=== PATIENT | female | born 1970 | race Caucasian/White ===

== ENCOUNTER 2016-09-24 13:09 | Emergency (ER) | payer BC ==
[2016-09-24 13:13] VITALS: BP 134/76; PULSE 77; TEMP 98.4; BMI 19.4
--- NOTE | 2016-09-24 14:18 | PDOC ---
History of Present Illness - General Chief Complaint: Allergic Reaction Stated Complaint: ALLERGIC RXN Time Seen by Provider: 09/24/16 13:49 History Source: Patient Exam Limitations: No Limitations - History of Present Illness Initial Comments: CHIEF COMPLAINT: 46 y/o afebrile female with PMH asthma, sinus infections and multiple allergies to medications c/o itching all over. HISTORY OF PRESENT ILLNESS: The patient states she's had 2 days of green nasal discharge and sinus pressure. Last night she decided to take an Advil cold and sinus (she has never taken before) and this morning woke up with overall body itching. She denies visible rash, f/c, n/v/d, CP, SOB, facial/tongue swelling, abd pain, back pain. She did not take benadryl because she states it causes her face to swell. PCP is Dr. Mark Oliva. Vital signs on arrival are within normal limits. REVIEW OF SYSTEMS: GENERAL/CONSTITUTIONAL: No fever/chills. No weakness. No weight change. HEAD, EYES, EARS, NOSE AND THROAT: No change in vision. No ear pain or discharge. No sore throat. +runny nose. +sinus pressure CARDIOVASCULAR: No chest pain or shortness of breath. RESPIRATORY: No cough, wheezing, or hemoptysis. GASTROINTESTINAL: No abd pain, nausea, vomiting, diarrhea. GENITOURINARY: No dysuria, frequency, or change in urination. MUSCULOSKELETAL: No joint or muscle swelling or pain. No neck or back pain. SKIN: +overall body itching NEUROLOGIC: No headache, vertigo, loss of consciousness, or loss of sensation. PHYSICAL EXAM: GENERAL: The patient is awake, alert, and fully oriented, in no acute distress. She is well appearing and ambulatory. HEAD: Normal with no signs of trauma. TTP of frontal and maxillary sinuses ENT: Pupils equal, round and reactive to light, extraocular movements intact, sclera anicteric, conjunctiva clear. Neck supple. No nasal discharge in nares. No tongue or facial swelling. LUNGS: Clear to auscultation bilaterally. Normal excursion. No respiratory distress or use of accessory muscles. No wheezing, rhonchi, crackles, rales. CV: RRR, S1/S2, no MRG. Cap refill < 2 sec. ABDOMEN: Soft, non-distended, non-tender even to deep palpation, no hepatomegaly or splenomegaly, no masses. EXTREMITIES: Normal range of motion, no edema. NEUROLOGICAL: Normal speech, normal gait. CN II-XII grossly intact. PSYCH: Normal mood, normal affect. SKIN: Warm, dry, normal turgor, no rashes or lesions noted. Past History - Past Medical History Allergies/Adverse Reactions: Allergies Allergy/AdvReac Type Severity Reaction Status Date / Time tinidazole [From Tindamax] Allergy Mild Hives Verified 06/03/16 18:10 chlorpheniramine maleate Allergy Verified 09/24/16 13:14 [From Advil Allergy Sinus] ciprofloxacin HCl Allergy Verified 06/03/16 18:10 [From Cipro] clarithromycin [From Biaxin] Allergy Verified 06/03/16 18:10 ibuprofen Allergy Verified 09/24/16 13:14 [From Advil Allergy Sinus] levofloxacin [From Levaquin] Allergy Verified 06/03/16 18:10 pseudoephedrine HCl Allergy Verified 09/24/16 13:14 [From Advil Allergy Sinus] sulfamethoxazole Allergy Verified 06/03/16 18:10 [From Bactrim] trimethoprim [From Bactrim] Allergy Verified 06/03/16 18:10 diphenhydramine HCl AdvReac Verified 06/03/16 18:10 [From Benadryl] Home Medications: Ambulatory Orders Amoxicillin/Potassium Clav [Augmentin 875-125 Tablet] 1 each PO BID #14 tablet 09/24/16 Asthma: Yes - Surgical History Abdominal Surgery: No - Immunization History Immunization Up to Date: No - Psycho/Social/Smoking Cessation Hx Anxiety: No Suicidal Ideation: No Smoking Status: Yes Smoking History: Current every day smoker Have you smoked in the past 12 months: Yes Number of Cigarettes Smoked Daily: 1 Information on smoking cessation initiated: No 'Breaking Loose' booklet given: 04/14/16 Hx Alcohol Use: No Drug/Substance Use Hx: No Substance Use Type: None *Physical Exam - Vital Signs Last Vital Signs Temp Pulse Resp BP Pulse Ox 98.4 F 77 18 134/76 99 09/24/16 13:10 09/24/16 13:10 09/24/16 13:10 09/24/16 13:10 09/24/16 13:10 Medical Decision Making - Medical Decision Making A/P: 46 y/o female with overall body itching possibly secondary to advil cold and sinus taken last night. Plan is as follows: 1. IM decadron Will send rx for augmentin to her her pharmacy for sinusitis. Instructed her to f/u with dr. oliva on wednesday and return to the ER with any worsening or concerning symptoms. The patient verbalizes understanding of all instructions, has no further questions and is awaiting discharge. *DC/Admit/Observation/Transfer Diagnosis at time of Disposition: Allergic reaction caused by a drug Qualifiers: Encounter type: subsequent encounter Qualified Code(s): T78.40XD - Allergy, unspecified, subsequent encounter Acute maxillary sinusitis Qualifiers: Recurrence: recurrent Qualified Code(s): J01.01 - Acute recurrent maxillary sinusitis - Discharge Dispostion Disposition: HOME Condition at time of disposition: Good - Prescriptions Prescriptions: Amoxicillin/Potassium Clav [Augmentin 875-125 Tablet] 1 each PO BID #14 tablet - Referrals Referrals: Mark Oliva MD [Primary Care Provider] - Call tomorrow - Patient Instructions Printed Discharge Instructions: DI for Adverse Drug Reaction -- Allergic, DI for Sinusitis Additional Instructions: Discharge Instructions: -You were given Decadron for your itching symptoms; its effects will last 48 hours -A prescription for augmentin was called to your pharmacy; take as directed -Follow up with your doctor on Wednesday -Return to the ER with any worsening or concerning symptoms.
[2016-09-24] MEDS ORDERED: DEXAMETHASONE SOD PHOSPHATE 10 MG/1 ML VIAL ONE (14:20)
[2016-09-24] MEDS: DEXAMETHASONE SOD PHOSPHATE 10 MG/1 ML VIAL IM ONE (14:23)
== END 2016-09-24 14:32 | disposition home or self-care (01) ==
LOC: JERFT 13:09
PROC: 3E0233Z Introduction of Anti-inflammatory into Muscle, Percutaneous Approach (ICD-10-PCS; principal; 2016-09-24)
DX: L29.8 Other pruritus (principal); T39.315A Adverse effect of propionic acid derivatives, initial encounter; J01.01 Acute recurrent maxillary sinusitis
CPT/HCPCS: 99281-25

== ENCOUNTER 2016-12-05 19:32 | Emergency (ER) | payer BC ==
[2016-12-05 19:38] VITALS: BP 128/82; PULSE 85; TEMP 98; BMI 19.4
--- NOTE | 2016-12-05 20:05 | PDOC ---
History of Present Illness - General Chief Complaint: Cold Symptoms Stated Complaint: COLD SYMPTOMS Time Seen by Provider: 12/05/16 19:59 History Source: Patient Exam Limitations: No Limitations - History of Present Illness Initial Comments: CHIEF COMPLAINT: 46 y/o afebrile female c/o sinus infection x 3 days. HISTORY OF PRESENT ILLNESS: The patient states she has sinus pressure, nasal congestion and pressure behind her eyes x 3 days. She states she gets recurrent sinus infections but doesn't take OTC allergy meds because they don't work and because she's allergic to everything. She denies f/c, n/v/d, earache, sore throat, CP, SOB, LONG, and all other symptoms. Vital signs on arrival are within normal limits. REVIEW OF SYSTEMS: GENERAL/CONSTITUTIONAL: No fever/chills. No weakness. No weight change. HEAD, EYES, EARS, NOSE AND THROAT: No change in vision. No ear pain or discharge. No sore throat. +sinus pressure and nasal congestion. +pressure behind eyes. CARDIOVASCULAR: No chest pain or shortness of breath. RESPIRATORY: No cough, wheezing, or hemoptysis. GASTROINTESTINAL: No abd pain, nausea, vomiting, diarrhea. GENITOURINARY: No dysuria, frequency, or change in urination. MUSCULOSKELETAL: No joint or muscle swelling or pain. No neck or back pain. SKIN: No rash or easy bruising. NEUROLOGIC: No headache, vertigo, loss of consciousness, or loss of sensation. PHYSICAL EXAM: GENERAL: The patient is awake, alert, and fully oriented, in no acute distress. SHe is ambulatory and well appearing. HEAD: Pain elicited with palpation of frontal and maxillary sinuses. ENT: Pupils equal, round and reactive to light, extraocular movements intact, sclera anicteric, conjunctiva clear. Neck supple. LUNGS: Clear to auscultation bilaterally. Normal excursion. No respiratory distress or use of accessory muscles. CV: RRR, S1/S2, no MRG. Cap refill < 2 sec. ABDOMEN: Soft, non-distended, non-tender even to deep palpation, no hepatomegaly or splenomegaly, no masses. EXTREMITIES: Normal range of motion, no edema. NEUROLOGICAL: Normal speech, normal gait. CN II-XII grossly intact. PSYCH: Normal mood, normal affect. SKIN: Warm, dry, normal turgor, no rashes or lesions noted. Past History - Past Medical History Allergies/Adverse Reactions: Allergies Allergy/AdvReac Type Severity Reaction Status Date / Time tinidazole [From Tindamax] Allergy Mild Hives Verified 12/05/16 19:34 chlorpheniramine maleate Allergy Verified 12/05/16 19:34 [From Advil Allergy Sinus] ciprofloxacin HCl Allergy Verified 12/05/16 19:34 [From Cipro] clarithromycin [From Biaxin] Allergy Verified 12/05/16 19:34 ibuprofen Allergy Verified 12/05/16 19:34 [From Advil Allergy Sinus] levofloxacin [From Levaquin] Allergy Verified 12/05/16 19:34 pseudoephedrine HCl Allergy Verified 12/05/16 19:34 [From Advil Allergy Sinus] sulfamethoxazole Allergy Verified 12/05/16 19:34 [From Bactrim] trimethoprim [From Bactrim] Allergy Verified 12/05/16 19:34 diphenhydramine HCl AdvReac Verified 12/05/16 19:34 [From Benadryl] Home Medications: Ambulatory Orders Amoxicillin - [Amoxicillin 500mg Capsule -] 500 mg PO TID #21 capsule 12/05/16 Asthma: Yes - Surgical History Abdominal Surgery: No - Immunization History Immunization Up to Date: No - Psycho/Social/Smoking Cessation Hx Anxiety: No Suicidal Ideation: No Smoking Status: Yes Smoking History: Current every day smoker Have you smoked in the past 12 months: Yes Number of Cigarettes Smoked Daily: 2 Information on smoking cessation initiated: Yes 'Breaking Loose' booklet given: 12/05/16 Hx Alcohol Use: No Drug/Substance Use Hx: No Substance Use Type: None *Physical Exam - Vital Signs Last Vital Signs Temp Pulse Resp BP Pulse Ox 98.0 F 85 18 128/82 100 12/05/16 19:35 12/05/16 19:35 12/05/16 19:35 12/05/16 19:35 12/05/16 19:35 Medical Decision Making - Medical Decision Making A/P: 46 y/o female with sinusitis. She states amoxicillin is the only thing that works for her and she is not allergic to. Will send rx for amox. Suggested she call her doctor on Wednesday to schedule follow up appointment and return to the ER with any worsening or concerning symptoms. The patient verbalizes understanding of all instructions, has no further questions and is awaiting discharge. *DC/Admit/Observation/Transfer Diagnosis at time of Disposition: Acute maxillary sinusitis Qualifiers: Recurrence: recurrent Qualified Code(s): J01.01 - Acute recurrent maxillary sinusitis - Discharge Dispostion Disposition: HOME Condition at time of disposition: Good - Prescriptions Prescriptions: Amoxicillin - [Amoxicillin 500mg Capsule -] 500 mg PO TID #21 capsule - Referrals Referrals: Mark Dsouza MD [Primary Care Provider] - (Call Wednesday) - Patient Instructions Printed Discharge Instructions: DI for Sinusitis Additional Instructions: Discharge Instructions: -Take Amoxicillin as prescribed -Call your doctor on Wednesday to schedule follow up appointment -Return to the ER with any worsening or concerning symptoms
== END 2016-12-05 20:10 | disposition home or self-care (01) ==
LOC: JERFT 19:32
DX: J01.01 Acute recurrent maxillary sinusitis (principal)
CPT/HCPCS: 99281-25

== ENCOUNTER 2016-12-19 14:52 | Emergency (ER) | payer BC ==
[2016-12-19 14:59] VITALS: BP 109/65; PULSE 86; TEMP 97.8; BMI 19.4
[2016-12-19] MEDS ORDERED: ACETAMINOPHEN 325 MG TABLET (FP) PO ONE (15:14)
[2016-12-19] MEDS ORDERED: DIPHTH,PERTUSS(ACELL),TET 0.5 ML DISP.SYRIN IM ONE (15:14)
[2016-12-19] MEDS ORDERED: ACETAMINOPHEN 325 MG TABLET (FP) ONE (15:24)
[2016-12-19] MEDS ORDERED: IBUPROFEN 600 MG TABLET (FP) PO ONE ×2 (15:29→15:33)
[2016-12-19] MEDS ORDERED: BACITRACIN 15 GM TUBE TOPICAL OINTMENT TP ONE (15:42)
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
== END 2016-12-19 16:04 | disposition home or self-care (01) ==
LOC: JERFT 14:52
PROC: 3E0234Z Introduction of Serum, Toxoid and Vaccine into Muscle, Percutaneous Approach (ICD-10-PCS; principal; 2016-12-19)
DX: S57.81XA Crushing injury of right forearm, initial encounter (principal); S60.811A Abrasion of right wrist, initial encounter; W23.0XXA Caught, crushed, jammed, or pinched between moving objects, initial encounter; Y93.89 Activity, other specified; Y92.038 Other place in apartment as the place of occurrence of the external cause
CPT/HCPCS: 73110-TC-RT; 73130-TC-RT; 90715; 99282-25

== ENCOUNTER 2017-03-30 18:53 | Emergency (ER) | payer BC ==
[2017-03-30 18:57] VITALS: BP 131/83; PULSE 90; TEMP 98.2; BMI 19.4
[2017-03-30] MEDS ORDERED: IBUPROFEN 400 MG TABLET (FP) PO ONE ×2 (20:28→20:33)
--- NOTE | 2017-03-30 20:34 | PDOC ---
History of Present Illness - General Chief Complaint: Pain, Acute Stated Complaint: FALL/INJURY Time Seen by Provider: 03/30/17 19:26 History Source: Patient - History of Present Illness Severity: moderate Past History - Past Medical History Allergies/Adverse Reactions: Allergies Allergy/AdvReac Type Severity Reaction Status Date / Time tinidazole [From Tindamax] Allergy Mild Hives Verified 03/30/17 18:55 chlorpheniramine maleate Allergy Verified 03/30/17 18:55 [From Advil Allergy Sinus] ciprofloxacin HCl Allergy Verified 03/30/17 18:55 [From Cipro] clarithromycin [From Biaxin] Allergy Verified 03/30/17 18:55 levofloxacin [From Levaquin] Allergy Verified 03/30/17 18:55 pseudoephedrine HCl Allergy Verified 03/30/17 18:55 [From Advil Allergy Sinus] sulfamethoxazole Allergy Verified 03/30/17 18:55 [From Bactrim] trimethoprim [From Bactrim] Allergy Verified 03/30/17 18:55 diphenhydramine HCl AdvReac Verified 03/30/17 18:55 [From Benadryl] Home Medications: Ambulatory Orders Ibuprofen [Motrin -] 800 mg PO Q6H #30 tablet 03/30/17 Asthma: Yes - Surgical History Abdominal Surgery: Yes - Immunization History Immunization Up to Date: No - Suicide/Smoking/Psychosocial Hx Smoking Status: Yes Smoking History: Current every day smoker Have you smoked in the past 12 months: Yes Number of Cigarettes Smoked Daily: 2 Information on smoking cessation initiated: No 'Breaking Loose' booklet given: 12/05/16 Hx Alcohol Use: No Drug/Substance Use Hx: No Substance Use Type: None Review of Systems - Review of Systems Musculoskeletal: Yes: Joint Pain. No: Joint Swelling *Physical Exam - Vital Signs Last Vital Signs Temp Pulse Resp BP Pulse Ox 98.2 F 90 18 131/83 100 03/30/17 18:55 03/30/17 18:55 03/30/17 18:55 03/30/17 18:55 03/30/17 18:55 - Physical Exam General Appearance: Yes: Appropriately Dressed. No: Apparent Distress HEENT: positive: Normal Voice Neck: positive: Supple Respiratory/Chest: negative: Respiratory Distress Gastrointestinal/Abdominal: positive: Soft Musculoskeletal: positive: Other (minimal ttp to R groin) Extremity: positive: Normal Inspection Integumentary: positive: Dry, Warm Neurologic: positive: Fully Oriented, Alert, Normal Mood/Affect Medical Decision Making - Medical Decision Making 03/30/17 20:34 46-year-old female, no significant history here with right groin strain status post fall. Patient states she lost her balance while descending steps today and "twisted" her groin See exam Groin strain dc w/ meds *DC/Admit/Observation/Transfer Diagnosis at time of Disposition: Groin strain Qualifiers: Encounter type: initial encounter Laterality: right Qualified Code(s): S76.211A - Strain of adductor muscle, fascia and tendon of right thigh, initial encounter; S76.211A - Strain of adductor muscle, fascia and tendon of right thigh, initial encounter - Discharge Dispostion Disposition: HOME Condition at time of disposition: Good - Prescriptions Prescriptions: Ibuprofen [Motrin -] 800 mg PO Q6H #30 tablet - Patient Instructions Printed Discharge Instructions: Groin Strain Additional Instructions: You most likely pulled a muscle in your groin. Take Motrin as needed until pain resolves
== END 2017-03-30 20:37 | disposition home or self-care (01) ==
LOC: SUPCPDRO 18:53 → JERFT 18:53
DX: S39.011A Strain of muscle, fascia and tendon of abdomen, initial encounter (principal); W10.8XXA Fall (on) (from) other stairs and steps, initial encounter; Y93.89 Activity, other specified; Y92.89 Other specified places as the place of occurrence of the external cause; Y99.8 Other external cause status
CPT/HCPCS: 99281-25

== ENCOUNTER 2017-04-07 16:54 | Emergency (ER) | payer BC ==
[2017-04-07 17:05] VITALS: BP 127/89; PULSE 87; TEMP 97.7; BMI 19.4
--- NOTE | 2017-04-07 17:29 | PDOC ---
History of Present Illness - General Chief Complaint: Pain Stated Complaint: SINUS EVALUATION Time Seen by Provider: 04/07/17 17:13 History Source: Patient Exam Limitations: No Limitations - History of Present Illness Initial Comments: 04/07/17 17:24 46 yr female with c/o sinus congestion and post nasal drip. Pt states yellow discharge. Pt has frequent sinusitus relieved with antibiotics. history of asthma smoker. Past History - Past Medical History Allergies/Adverse Reactions: Allergies Allergy/AdvReac Type Severity Reaction Status Date / Time tinidazole [From Tindamax] Allergy Mild Hives Verified 04/07/17 17:06 chlorpheniramine maleate Allergy Verified 04/07/17 17:06 [From Advil Allergy Sinus] ciprofloxacin HCl Allergy Verified 04/07/17 17:06 [From Cipro] clarithromycin [From Biaxin] Allergy Verified 04/07/17 17:06 levofloxacin [From Levaquin] Allergy Verified 04/07/17 17:06 pseudoephedrine HCl Allergy Verified 04/07/17 17:06 [From Advil Allergy Sinus] sulfamethoxazole Allergy Verified 04/07/17 17:06 [From Bactrim] trimethoprim [From Bactrim] Allergy Verified 04/07/17 17:06 diphenhydramine HCl AdvReac Verified 04/07/17 17:06 [From Benadryl] Home Medications: Ambulatory Orders Amoxicillin/Potassium Clav [Augmentin 875-125 Tablet] 1 each PO BID #14 tablet 04/07/17 Asthma: Yes - Surgical History Abdominal Surgery: Yes Cholecystectomy: Yes - Immunization History Immunization Up to Date: No - Suicide/Smoking/Psychosocial Hx Smoking Status: Yes Smoking History: Current every day smoker Have you smoked in the past 12 months: Yes Number of Cigarettes Smoked Daily: 1 Information on smoking cessation initiated: Yes 'Breaking Loose' booklet given: 04/07/17 Hx Alcohol Use: No Drug/Substance Use Hx: No Substance Use Type: None Trauma Specific PMHX - Complaint Specific PMHX Arthritis: No Back Injury: No Neck Injury: No Hx Sacro Iliac Joint Dysfunction: No Review of Systems - Review of Systems Able to Perform ROS?: Yes Is the patient limited [place] proficient: No Constitutional: No: Symptoms Reported HEENTM: Yes: Symptoms Reported, See HPI Respiratory: Yes: Symptoms reported, See HPI Cardiac (ROS): No: Symptoms Reported ABD/GI: No: Symptoms Reported : No: Symptoms Reported, Testicular Mass Musculoskeletal: No: Symptoms Reported Integumentary: No: Symptoms Reported Neurological: No: Symptoms reported *Physical Exam - Vital Signs Last Vital Signs Temp Pulse Resp BP Pulse Ox 97.7 F 87 20 127/89 100 04/07/17 17:02 04/07/17 17:02 04/07/17 17:02 04/07/17 17:02 04/07/17 17:02 - Physical Exam General Appearance: Yes: Nourished, Appropriately Dressed HEENT: positive: EOMI, OMER, TMs Normal, Pharynx Normal, Nasal Congestion, Sinus Tenderness Neck: positive: Supple Respiratory/Chest: positive: Lungs Clear, Normal Breath Sounds Cardiovascular: positive: Regular Rhythm, Regular Rate Gastrointestinal/Abdominal: positive: Normal Bowel Sounds, Soft Musculoskeletal: positive: Normal Inspection Extremity: positive: Normal Capillary Refill, Normal Inspection, Normal Range of Motion Integumentary: positive: Normal Color, Dry, Warm Neurologic: positive: Fully Oriented, Alert, Normal Mood/Affect, Normal Response , Motor Strength 5/5 Medical Decision Making - Medical Decision Making 04/07/17 17:31 cc: sinusitus pt refuses to use Flonase or any nasal spray that goes in her nose pt is requesting antibiotics states "that is the only thing that help everytime she gets them " will give Augmentin as directed referred to ENT for follow up *DC/Admit/Observation/Transfer Diagnosis at time of Disposition: Acute frontal sinusitis Qualifiers: Recurrence: recurrent Qualified Code(s): J01.11 - Acute recurrent frontal sinusitis - Discharge Dispostion Disposition: HOME Condition at time of disposition: Good - Prescriptions Prescriptions: Amoxicillin/Potassium Clav [Augmentin 875-125 Tablet] 1 each PO BID #14 tablet - Referrals Referrals: Mark Dsouza MD [Primary Care Provider] - Brandan Lewis MD [Staff Physician] - - Patient Instructions Additional Instructions: follow with ENT for follow up to help further manage your allergies and your chronic sinusitus take the antibiotics as directed (Augmentin) return to ER if worse
== END 2017-04-07 17:46 | disposition home or self-care (01) ==
LOC: JERFT 16:54
DX: J01.11 Acute recurrent frontal sinusitis (principal); J45.909 Unspecified asthma, uncomplicated; F17.210 Nicotine dependence, cigarettes, uncomplicated
CPT/HCPCS: 99281-25

== ENCOUNTER 2017-08-26 14:18 | Emergency (ER) | payer BC ==
[2017-08-26] MEDS ORDERED: ALBUTEROL SO4 2.5/IPRATROPIUM 0.5 INH SOL 3 ML VIAL.NEB. NEB ONE (14:26)
[2017-08-26 14:27] VITALS: BP 133/55; PULSE 92; TEMP 98.2; BMI 19.4
--- NOTE | 2017-08-26 14:27 | PDOC ---
Rapid Medical Evaluation Chief Complaint: Cold Symptoms Time Seen by Provider: 08/26/17 14:24 Medical Evaluation: Allergies Allergy/AdvReac Type Severity Reaction Status Date / Time tinidazole [From Tindamax] Allergy Mild Hives Verified 04/07/17 17:06 chlorpheniramine maleate Allergy Verified 04/07/17 17:06 [From Advil Allergy Sinus] ciprofloxacin HCl Allergy Verified 04/07/17 17:06 [From Cipro] clarithromycin [From Biaxin] Allergy Verified 04/07/17 17:06 levofloxacin [From Levaquin] Allergy Verified 04/07/17 17:06 pseudoephedrine HCl Allergy Verified 04/07/17 17:06 [From Advil Allergy Sinus] sulfamethoxazole Allergy Verified 04/07/17 17:06 [From Bactrim] trimethoprim [From Bactrim] Allergy Verified 04/07/17 17:06 diphenhydramine HCl AdvReac Verified 04/07/17 17:06 [From Benadryl] 08/26/17 14:25 47 year old female with history of asthma (on albuterol prn, no hospitalizations ) and cigarette smoking presenting with cough productive of green sputum and chest tightness this morning. No fevers/chills. -Expiratory wheezing, good air entry bilaterally -DuoNeb -To FT for further evaluation Discharge Disposition - Referrals Referrals: Mark Dsouza MD [Primary Care Provider] - - Patient Instructions - Post Discharge Activity
--- NOTE | 2017-08-26 15:13 | PDOC ---
History of Present Illness - General Chief Complaint: Cold Symptoms Stated Complaint: Cold Symptoms Time Seen by Provider: 08/26/17 14:24 History Source: Patient Exam Limitations: No Limitations - History of Present Illness Initial Comments: 08/26/17 15:08 Patient came for evaluation of worsening cough, thick green phlegm production, wheezing and chest tightness. States onset of symptoms was 2 days ago but is progressively worsened. Used albuterol nebs at home but did not resolve. Timing/Duration: reports: getting worse Severity: reports: mild, moderate Associated Symptoms: reports: chest pain/soreness, fever/chills, nasal congestion, wheezing. denies: denies symptoms Past History - Travel Traveled outside of the country in the last 30 days: No Close contact w/someone who was outside of country & ill: No - Past Medical History Allergies/Adverse Reactions: Allergies Allergy/AdvReac Type Severity Reaction Status Date / Time tinidazole [From Tindamax] Allergy Mild Hives Verified 04/07/17 17:06 chlorpheniramine maleate Allergy Verified 04/07/17 17:06 [From Advil Allergy Sinus] ciprofloxacin HCl Allergy Verified 04/07/17 17:06 [From Cipro] clarithromycin [From Biaxin] Allergy Verified 04/07/17 17:06 levofloxacin [From Levaquin] Allergy Verified 04/07/17 17:06 pseudoephedrine HCl Allergy Verified 04/07/17 17:06 [From Advil Allergy Sinus] sulfamethoxazole Allergy Verified 04/07/17 17:06 [From Bactrim] trimethoprim [From Bactrim] Allergy Verified 04/07/17 17:06 diphenhydramine HCl AdvReac Verified 04/07/17 17:06 [From Benadryl] Home Medications: Ambulatory Orders Amoxicillin - [Amoxicillin 500mg Capsule -] 500 mg PO TID #21 capsule 08/26/17 Asthma: Yes COPD: No - Surgical History Abdominal Surgery: Yes Cholecystectomy: Yes - Immunization History Immunization Up to Date: No - Suicide/Smoking/Psychosocial Hx Smoking Status: Yes Smoking History: Current every day smoker Have you smoked in the past 12 months: Yes Number of Cigarettes Smoked Daily: 1 Information on smoking cessation initiated: No 'Breaking Loose' booklet given: 08/26/17 Hx Alcohol Use: No Drug/Substance Use Hx: No Substance Use Type: None Respiratory Specific PMHX - Complaint Specific PMHX Bronchitis: No Pneumonia: No Review of Systems - Review of Systems Able to Perform ROS?: Yes Is the patient limited Citizen [place] proficient: Yes Constitutional: Yes: Symptoms Reported, See HPI, Malaise HEENTM: Yes: See HPI. No: Symptoms Reported Respiratory: Yes: Symptoms reported, See HPI, Cough, Wheezing Musculoskeletal: Yes: Symptoms Reported All Other Systems: Reviewed and Negative *Physical Exam - Vital Signs Last Vital Signs Temp Pulse Resp BP Pulse Ox 98.2 F 92 H 18 133/55 98 08/26/17 14:24 08/26/17 14:24 08/26/17 14:24 08/26/17 14:24 08/26/17 14:24 - Physical Exam General Appearance: Yes: Nourished, Appropriately Dressed, Apparent Distress, Mild Distress HEENT: positive: OMER, Normal ENT Inspection, TMs Normal, Pharynx Normal, Rhinorrhea (clear) Neck: positive: Supple. negative: Tender Respiratory/Chest: positive: Chest Tender, Normal Breath Sounds, Wheezing ( course into toward expiratory breath sounds bilaterally, and moist). negative: Lungs Clear Gastrointestinal/Abdominal: positive: Soft. negative: Normal Bowel Sounds Musculoskeletal: positive: Normal Inspection Extremity: positive: Normal Capillary Refill, Normal Inspection Integumentary: positive: Normal Color, Dry, Pale Neurologic: positive: paste thinner II-XII NML intact, Fully Oriented, Alert, Normal Mood/ Affect, Normal Response, Motor Strength /5 ED Treatment Course - Medications Given in the ED: ED Medications Discontinued Medications Generic Name Dose Route Start Last Admin Trade Name Freq PRN Reason Stop Dose Admin Albuterol/Ipratropium 1 amp 08/26/17 14:26 08/26/17 14:29 Duoneb - NEB 08/26/17 14:27 1 amp ONCE ONE Administration Progress Note - Progress Note Progress Note: Rhonchi arthritis, 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 and continue Proventil *DC/Admit/Observation/Transfer Diagnosis at time of Disposition: Bronchitis - Discharge Dispostion Disposition: HOME Condition at time of disposition: Stable Admit: No - Prescriptions Prescriptions: Amoxicillin - [Amoxicillin 500mg Capsule -] 500 mg PO TID #21 capsule - Referrals Referrals: Mark Dsouza MD [Primary Care Provider] - - Patient Instructions Printed Discharge Instructions: DI for Acute Bronchitis Additional Instructions: Rest, drink lots of fluids: Teas, water, soups, Pedialyte Saltwater gargles Steamy showers/seem to face break up mucus Avoid contact with others until fevers and cough resolved Lots of handwashing and good hygiene Continue [id number] medications for symptomatic relief Tylenol or Motrin for fever and pain Amoxicillin as directed Followup with private physician in one to 2 days as needed Return to emergency department for worsened symptoms, fevers, dehydration - Post Discharge Activity Forms/Work/School Notes: Back to Work
== END 2017-08-26 15:35 | disposition home or self-care (01) ==
LOC: JERFT 14:18
PROC: 3E0F7GC Introduction of Other Therapeutic Substance into Respiratory Tract, Via Natural or Artificial Opening (ICD-10-PCS; principal; 2017-08-26)
DX: J40 Bronchitis, not specified as acute or chronic (principal)
CPT/HCPCS: 99281-25; J7620

== ENCOUNTER 2017-10-10 14:17 | Emergency (ER) | payer BC | END 2017-10-10 15:09 | disposition home or self-care (01) | LOC: JERFT 14:17 | CPT/HCPCS: 99281-25 ==

== ENCOUNTER 2018-05-05 12:36 | Emergency (ER) | payer BC ==
[2018-05-05 12:55] VITALS: BP 145/87; PULSE 87; TEMP 98.3; BMI 19.6
[2018-05-05] MEDS ORDERED: PHENAZOPYRIDINE HCL 100 MG TABLET (FP) PO ONE (13:17)
[2018-05-05] MEDS ORDERED: CEPHALEXIN MONOHYDRATE 500 MG CAPSULE (UD) PO STA (13:17)
--- NOTE | 2018-05-05 13:21 | PDOC ---
History of Present Illness - General Chief Complaint: Urinary Problem Stated Complaint: URINARY PROBLEM Time Seen by Provider: 05/05/18 12:58 History Source: Patient Exam Limitations: No Limitations - History of Present Illness Travel History: No Initial Comments: 05/05/18 13:15 47 yr female with c/o burning urgency and frequency on urination. no fever no chills no back pain or vomiting. Past History - Past Medical History Allergies/Adverse Reactions: Allergies Allergy/AdvReac Type Severity Reaction Status Date / Time tinidazole [From Tindamax] Allergy Mild Hives Verified 05/05/18 12:43 chlorpheniramine maleate Allergy Verified 05/05/18 12:43 [From Advil Allergy Sinus] ciprofloxacin HCl Allergy Verified 05/05/18 12:43 [From Cipro] clarithromycin [From Biaxin] Allergy Verified 05/05/18 12:43 levofloxacin [From Levaquin] Allergy Verified 05/05/18 12:43 pseudoephedrine HCl Allergy Verified 05/05/18 12:43 [From Advil Allergy Sinus] sulfamethoxazole Allergy Verified 05/05/18 12:43 [From Bactrim] trimethoprim [From Bactrim] Allergy Verified 05/05/18 12:43 diphenhydramine HCl AdvReac Verified 05/05/18 12:43 [From Benadryl] Home Medications: Ambulatory Orders Cephalexin [Keflex] 500 mg PO BID #6 capsule 05/05/18 Phenazopyridine HCl [Pyridium] 200 mg PO TID PRN #6 tablet 05/05/18 Asthma: Yes CVA: No COPD: No DVT: No - Surgical History Abdominal Surgery: Yes Cholecystectomy: Yes - Immunization History Immunization Up to Date: No - Suicide/Smoking/Psychosocial Hx Smoking Status: Yes Smoking History: Current some day smoker Have you smoked in the past 12 months: No Number of Cigarettes Smoked Daily: 3 Information on smoking cessation initiated: No 'Breaking Loose' booklet given: 08/26/17 Hx Alcohol Use: No Drug/Substance Use Hx: No Substance Use Type: None Abd/GI Specific PMHX - Complaint Specific PMHX Colitis: No Diverticulitis: No Gall Bladder Disease: No GERD: No Hepatitis: No Irritable Bowel Synd (IBS): No Pancreatitis: No GI Ulcer Disease: No Review of Systems - Review of Systems Able to Perform ROS?: Yes Is the patient limited [place] proficient: No : Yes: Symptoms Reported *Physical Exam - Vital Signs Last Vital Signs Temp Pulse Resp BP Pulse Ox 98.3 F 87 18 145/87 100 05/05/18 12:44 05/05/18 12:44 05/05/18 12:44 05/05/18 12:44 05/05/18 12:44 - Physical Exam General Appearance: Yes: Nourished, Appropriately Dressed HEENT: positive: EOMI, OMER Neck: positive: Supple Respiratory/Chest: positive: Lungs Clear, Normal Breath Sounds. negative: Chest Tender, Stridor, Wheezing Cardiovascular: positive: Regular Rhythm, Regular Rate Gastrointestinal/Abdominal: positive: Normal Bowel Sounds, Soft, Other ( suprapubic tenderness ) Musculoskeletal: positive: Normal Inspection Extremity: positive: Normal Capillary Refill, Normal Inspection, Normal Range of Motion Integumentary: positive: Normal Color, Dry, Warm Neurologic: positive: test analyst II-XII NML intact, Fully Oriented, Alert, Normal Mood/ Affect, Normal Response, Motor Strength 5/5 Medical Decision Making - Medical Decision Making 05/05/18 13:16 cc: urinary urgency and frequency, burning no vaginal discharge no fever chills neg CVAT *DC/Admit/Observation/Transfer Diagnosis at time of Disposition: Urinary tract infection Qualifiers: Urinary tract infection type: acute cystitis Hematuria presence: without hematuria Qualified Code(s): N30.00 - Acute cystitis without hematuria - Discharge Dispostion Disposition: HOME Condition at time of disposition: Good - Prescriptions Prescriptions: Cephalexin [Keflex] 500 mg PO BID #6 capsule Phenazopyridine HCl [Pyridium] 200 mg PO TID PRN #6 tablet PRN Reason: urinary pain - Referrals - Patient Instructions Additional Instructions: drink at least 2 liters of water take Keflex as directed for 3 days for UTI take the pyridium for pain follow with your doctor in one week for follow up return if any fever, vomiting, back pain or any other concerns - Post Discharge Activity
[2018-05-05 13:27] LABS: HCG,QUALITATIVE URINE Negative
[2018-05-05] MEDS ORDERED: CEPHALEXIN MONOHYDRATE 500 MG CAPSULE (UD) ONE (13:28)
[2018-05-05 13:35] LABS: URINE APPEARANCE Clear; URINE BILIRUBIN Negative (<2.0 mg/dL); URINE COLOR Yellow; URINE GLUCOSE (UA) Negative (NEGATIVE); URINE KETONE Negative (NEGATIVE); URINE LEUK ESTERASE 1+ (NEGATIVE); URINE NITRITE Negative (NEGATIVE); URINE PROTEIN Negative (NEGATIVE); URINE UROBILINOGEN 0.2 mg/dL (0.2-1.0)
[2018-05-05 14:11] LABS: EPI CELLS RARE /HPF (FEW); URINE BACTERIA MANY /hpf (NONE SEEN)
== END 2018-05-05 13:47 | disposition home or self-care (01) ==
LOC: JERFT 12:36 → JER 12:36 → JERFT 13:47
DX: N30.00 Acute cystitis without hematuria (principal); B96.89 Other specified bacterial agents as the cause of diseases classified elsewhere; Z87.09 Personal history of other diseases of the respiratory system; Z88.8 Allergy status to other drugs, medicaments and biological substances
CPT/HCPCS: 36415; 81003; 81015; 84703; 87086; 87186; 87491; 87591; 99281-25

== ENCOUNTER 2018-10-18 17:40 | Emergency (ER) | payer OTHER, BC ==
[2018-10-18] MEDS ORDERED: predniSONE 20 MG TABLET (UD) PO ONE (17:45)
--- NOTE | 2018-10-18 17:45 | PDOC ---
Rapid Medical Evaluation Time Seen by Provider: 10/18/18 17:42 Medical Evaluation: Allergies Allergy/AdvReac Type Severity Reaction Status Date / Time tinidazole [From Tindamax] Allergy Mild Hives Verified 05/05/18 12:43 chlorpheniramine maleate Allergy Verified 05/05/18 12:43 [From Advil Allergy Sinus] ciprofloxacin HCl Allergy Verified 05/05/18 12:43 [From Cipro] clarithromycin [From Biaxin] Allergy Verified 05/05/18 12:43 levofloxacin [From Levaquin] Allergy Verified 05/05/18 12:43 pseudoephedrine HCl Allergy Verified 05/05/18 12:43 [From Advil Allergy Sinus] sulfamethoxazole Allergy Verified 05/05/18 12:43 [From Bactrim] trimethoprim [From Bactrim] Allergy Verified 05/05/18 12:43 diphenhydramine HCl AdvReac Verified 05/05/18 12:43 [From Benadryl] 10/18/18 17:42 I have performed a brief in-person evaluation of this patient. The patient presents with a chief complaint of: rash to body Pertinent physical exam findings: VSS. AF. Lungs CTAB. No stridor. I have ordered the following: prednisone The patient will proceed to the ED for further evaluation. 10/18/18 17:45 Discharge Disposition - Diagnosis Itching - Referrals - Patient Instructions - Post Discharge Activity
[2018-10-18 17:46] VITALS: BP 134/92; PULSE 94; TEMP 97.8; BMI 19.1
[2018-10-18] MEDS ORDERED: predniSONE 20 MG TABLET (UD) ONE (18:00)
[2018-10-18] MEDS ORDERED: LORATADINE 10 MG TABLET PO ONE (18:14)
[2018-10-18] MEDS ORDERED: LORATADINE 10 MG TABLET ONE (18:19)
--- NOTE | 2018-10-18 18:21 | PDOC ---
History of Present Illness - General Chief Complaint: Allergic Reaction Stated Complaint: ALLERGIC REACTION Time Seen by Provider: 10/18/18 17:42 History Source: Patient (rash to neck and back after dust exponsure at work) Exam Limitations: No Limitations - History of Present Illness Associated Symptoms: reports: denies symptoms Past History - Travel Traveled outside of the country in the last 30 days: No Close contact w/someone who was outside of country & ill: No - Past Medical History Allergies/Adverse Reactions: Allergies Allergy/AdvReac Type Severity Reaction Status Date / Time tinidazole [From Tindamax] Allergy Mild Hives Verified 10/18/18 17:42 chlorpheniramine maleate Allergy Verified 10/18/18 17:42 [From Advil Allergy Sinus] ciprofloxacin HCl Allergy Verified 10/18/18 17:42 [From Cipro] clarithromycin [From Biaxin] Allergy Verified 10/18/18 17:42 levofloxacin [From Levaquin] Allergy Verified 10/18/18 17:42 pseudoephedrine HCl Allergy Verified 10/18/18 17:42 [From Advil Allergy Sinus] sulfamethoxazole Allergy Verified 10/18/18 17:42 [From Bactrim] trimethoprim [From Bactrim] Allergy Verified 10/18/18 17:42 diphenhydramine HCl AdvReac Verified 10/18/18 17:42 [From Benadryl] Home Medications: Ambulatory Orders Cetirizine HCl 10 mg PO DAILY 30 Days #30 tablet 10/18/18 Triamcinolone 0.025% Ointment [Aristocort 0.025% Ointment -] 1 applic TP BID 7 Days #30 gm 10/18/18 Asthma: Yes CVA: No COPD: No DVT: No - Surgical History Abdominal Surgery: Yes Cholecystectomy: Yes - Immunization History Immunization Up to Date: Yes - Suicide/Smoking/Psychosocial Hx Smoking Status: Yes Smoking History: Current every day smoker Have you smoked in the past 12 months: No Number of Cigarettes Smoked Daily: 3 Information on smoking cessation initiated: No 'Breaking Loose' booklet given: 08/26/17 Hx Alcohol Use: No Drug/Substance Use Hx: No Substance Use Type: None Review of Systems - Review of Systems Constitutional: No: Chills, Fever HEENTM: No: Difficulty Swallowing Respiratory: No: Shortness of Breath, Stridor, Wheezing Cardiac (ROS): No: Chest Pain Integumentary: Yes: Pruritus, Rash Neurological: No: Headache, Dizziness *Physical Exam - Vital Signs Last Vital Signs Temp Pulse Resp BP Pulse Ox 97.8 F 94 H 18 134/92 100 10/18/18 17:44 10/18/18 17:44 10/18/18 17:44 10/18/18 17:44 10/18/18 17:44 - Physical Exam General Appearance: Yes: Nourished Neck: positive: Supple Respiratory/Chest: positive: Lungs Clear, Normal Breath Sounds Cardiovascular: positive: Regular Rhythm, Regular Rate, S1, S2 Integumentary: positive: Rash (erythema rash to back, + mildl erythema noted in right lateral neck , no warmth) Neurologic: positive: portrait studio photographer II-XII NML intact, Fully Oriented, Alert, Normal Response, Motor Strength 10/16 ED Treatment Course - Medications Given in the ED: ED Medications Discontinued Medications Generic Name Dose Route Start Last Admin Trade Name Freq PRN Reason Stop Dose Admin Prednisone 60 mg 10/18/18 17:45 10/18/18 18:07 Deltasone - PO 10/18/18 17:46 60 mg ONCE ONE Administration Medical Decision Making - Medical Decision Making 10/18/18 18:18 48y/o F with h/o asthma, seasonal allergies, multiple drug allergies p/w hives evaluation after dust exposure at work pt reports her desk is been moved tomorrow to a work area with alot of dust, she advised her supervision she gets rash and hives each time she walks past that area. 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 the area and immediately broke out in hives in neck and back pt reports she washed the area immediately with some relief she has notified her union delegate who will assist in this matter Resolving hives likely from contact pt advised to take antihistamine daily avoid offending agent f/u with Allergen doctor *DC/Admit/Observation/Transfer Diagnosis at time of Disposition: Itching, Allergic dermatitis - Discharge Dispostion Disposition: HOME Condition at time of disposition: Stable - Prescriptions Prescriptions: Cetirizine HCl 10 mg PO DAILY 30 Days #30 tablet Triamcinolone 0.025% Ointment [Aristocort 0.025% Ointment -] 1 applic TP BID 7 Days #30 gm - Referrals - Patient Instructions Printed Discharge Instructions: Ata Additional Instructions: Please avoid offending agent take meds as prescribed Follow up with your allergy doctor Return to the ER if worsening symptoms occurs. - Post Discharge Activity
== END 2018-10-18 18:43 | disposition home or self-care (01) ==
LOC: JERFT 17:40
DX: L23.89 Allergic contact dermatitis due to other agents (principal)
CPT/HCPCS: 99281-25

== ENCOUNTER 2018-10-26 10:07 | Emergency (ER) | payer BC, OTHER ==
[2018-10-26 10:17] VITALS: BP 127/88; TEMP 98.5; BMI 19.8
[2018-10-26] MEDS ORDERED: ALBUTEROL SO4 2.5/IPRATROPIUM 0.5 INH SOL 3 ML VIAL.NEB. NEB ONE (10:50)
[2018-10-26 11:15] VITALS: PULSE 108
--- NOTE | 2018-10-26 11:28 | PDOC ---
History of Present Illness - General Chief Complaint: Asthma Stated Complaint: CHEST TIGHTNESS Time Seen by Provider: 10/26/18 10:42 History Source: Patient Exam Limitations: No Limitations Past History - Past Medical History Allergies/Adverse Reactions: Allergies Allergy/AdvReac Type Severity Reaction Status Date / Time tinidazole [From Tindamax] Allergy Mild Hives Verified 10/18/18 17:42 chlorpheniramine maleate Allergy Verified 10/18/18 17:42 [From Advil Allergy Sinus] ciprofloxacin HCl Allergy Verified 10/18/18 17:42 [From Cipro] clarithromycin [From Biaxin] Allergy Verified 10/18/18 17:42 levofloxacin [From Levaquin] Allergy Verified 10/18/18 17:42 pseudoephedrine HCl Allergy Verified 10/18/18 17:42 [From Advil Allergy Sinus] sulfamethoxazole Allergy Verified 10/18/18 17:42 [From Bactrim] trimethoprim [From Bactrim] Allergy Verified 10/18/18 17:42 diphenhydramine HCl AdvReac Verified 10/18/18 17:42 [From Benadryl] Home Medications: Ambulatory Orders Cetirizine HCl 10 mg PO DAILY 30 Days #30 tablet 10/18/18 Triamcinolone 0.025% Ointment [Aristocort 0.025% Ointment -] 1 applic TP BID 7 Days #30 gm 10/18/18 Asthma: Yes CVA: No COPD: No DVT: No - Surgical History Abdominal Surgery: Yes Cholecystectomy: Yes - Immunization History Immunization Up to Date: Yes - Suicide/Smoking/Psychosocial Hx Smoking Status: Yes Smoking History: Never smoked Have you smoked in the past 12 months: No Number of Cigarettes Smoked Daily: 3 Information on smoking cessation initiated: No 'Breaking Loose' booklet given: 08/26/17 Hx Alcohol Use: No Drug/Substance Use Hx: No Substance Use Type: None Respiratory Specific PMHX - Complaint Specific PMHX Bronchitis: No Pneumonia: No *Physical Exam - Vital Signs Last Vital Signs Temp Pulse Resp BP Pulse Ox 98.5 F 108 H 20 127/88 99 10/26/18 10:13 10/26/18 11:14 10/26/18 11:14 10/26/18 10:13 10/26/18 11:14 - Physical Exam General Appearance: No: Apparent Distress Respiratory/Chest: positive: Lungs Clear, Normal Breath Sounds. negative: Respiratory Distress, Labored Respiration, Rhonchi, Stridor, Wheezing Cardiovascular: positive: Regular Rhythm, Regular Rate, S1, S2. negative: Murmur Gastrointestinal/Abdominal: positive: Normal Bowel Sounds, Soft. negative: Tender, Distended, Guarding, Rebound Integumentary: positive: Normal Color Neurologic: positive: Alert, Normal Mood/Affect ED Treatment Course - Medications Given in the ED: ED Medications Discontinued Medications Generic Name Dose Route Start Last Admin Trade Name Freq PRN Reason Stop Dose Admin Albuterol/Ipratropium 1 amp 10/26/18 10:50 10/26/18 10:54 Duoneb - NEB 10/26/18 10:51 1 amp ONCE ONE Administration Medical Decision Making - Medical Decision Making 48 y/o F hx of asthma (never intubated, never hospitalized) states is having some issues at work and while at work, she got worked up about something today and started experiencing some chest tightness and SOB, which felt like her typical asthma. Used her albuterol pump and is now feeling better. Denies fever , URI sxs, chest pain, abd pain, n/v, LE swelling Patient's lungs already clear prior to treatment Given duoneb x 1 Stable for dc 10/26/18 11:23 *DC/Admit/Observation/Transfer Diagnosis at time of Disposition: Asthma exacerbation Qualifiers: Asthma severity: mild Asthma persistence: unspecified Qualified Code(s): J45.901 - Unspecified asthma with (acute) exacerbation - Discharge Dispostion Disposition: HOME Condition at time of disposition: Improved Decision to Admit order: No - Referrals Referrals: Mark Dsouza MD [Primary Care Provider] - 2 Days - Patient Instructions Printed Discharge Instructions: Asthma -- Adult - Post Discharge Activity
--- NOTE | 2018-10-28 14:50 | EKG ---
Test Reason : Blood Pressure : / mmHG Vent. Rate : 093 BPM Atrial Rate : 093 BPM P-R Int : 188 ms QRS Dur : 074 ms QT Int : 352 ms P-R-T Axes : 080 -05 051 degrees QTc Int : 437 ms NORMAL SINUS RHYTHM RIGHT ATRIAL ENLARGEMENT WHEN COMPARED WITH ECG OF 29-SEP-2007 22:24, NO SIGNIFICANT CHANGE WAS FOUND Confirmed by DANNY FALCON MD ([id number]) on 10/28/2018 2:49:37 PM Referred By: Confirmed By:DANNY FALCON MD
== END 2018-10-26 11:34 | disposition home or self-care (01) ==
LOC: JERFT 10:07
PROC: 3E0F7GC Introduction of Other Therapeutic Substance into Respiratory Tract, Via Natural or Artificial Opening (ICD-10-PCS; principal; 2018-10-26)
DX: J45.901 Unspecified asthma with (acute) exacerbation (principal)
CPT/HCPCS: 93005; 93010; 99281-25

== ENCOUNTER 2018-12-05 13:53 | Emergency (ER) | payer BC ==
--- NOTE | 2018-12-05 13:59 | PDOC ---
Rapid Medical Evaluation Time Seen by Provider: 12/05/18 13:56 Medical Evaluation: Allergies Allergy/AdvReac Type Severity Reaction Status Date / Time tinidazole [From Tindamax] Allergy Mild Hives Verified 10/18/18 17:42 chlorpheniramine maleate Allergy Verified 10/18/18 17:42 [From Advil Allergy Sinus] ciprofloxacin HCl Allergy Verified 10/18/18 17:42 [From Cipro] clarithromycin [From Biaxin] Allergy Verified 10/18/18 17:42 levofloxacin [From Levaquin] Allergy Verified 10/18/18 17:42 pseudoephedrine HCl Allergy Verified 10/18/18 17:42 [From Advil Allergy Sinus] sulfamethoxazole Allergy Verified 10/18/18 17:42 [From Bactrim] trimethoprim [From Bactrim] Allergy Verified 10/18/18 17:42 diphenhydramine HCl AdvReac Verified 10/18/18 17:42 [From Benadryl] 12/05/18 13:56 I have performed a brief in-person evaluation of this patient. The patient presents with a chief complaint of: right ankle pain s/p nversion injury Pertinent physical exam findings: posterior ankle tendrness. No deformity, crepitus or step-offs. I have ordered the following: ice, xray The patient will proceed to the ED for further evaluation. Discharge Disposition - Diagnosis Ankle pain, right - Referrals - Patient Instructions - Post Discharge Activity
[2018-12-05 14:00] VITALS: BP 136/90; PULSE 91; TEMP 98; BMI 19.4
--- NOTE | 2018-12-05 14:53 | PDOC ---
History of Present Illness - General Chief Complaint: Injury Stated Complaint: INJURY Time Seen by Provider: 12/05/18 13:56 - History of Present Illness Initial Comments: 12/05/18 14:48 48-year-old female presents for evaluation of right ankle pain. She describes an inversion type injury while going up the steps last night Past History - Past Medical History Allergies/Adverse Reactions: Allergies Allergy/AdvReac Type Severity Reaction Status Date / Time tinidazole [From Tindamax] Allergy Mild Hives Verified 12/05/18 13:58 chlorpheniramine maleate Allergy Verified 12/05/18 13:58 [From Advil Allergy Sinus] ciprofloxacin HCl Allergy Verified 12/05/18 13:58 [From Cipro] clarithromycin [From Biaxin] Allergy Verified 12/05/18 13:58 levofloxacin [From Levaquin] Allergy Verified 12/05/18 13:58 pseudoephedrine HCl Allergy Verified 12/05/18 13:58 [From Advil Allergy Sinus] sulfamethoxazole Allergy Verified 12/05/18 13:58 [From Bactrim] trimethoprim [From Bactrim] Allergy Verified 12/05/18 13:58 diphenhydramine HCl AdvReac Verified 12/05/18 13:58 [From Benadryl] Home Medications: Ambulatory Orders Cetirizine HCl 10 mg PO DAILY 30 Days #30 tablet 10/18/18 Triamcinolone 0.025% Ointment [Aristocort 0.025% Ointment -] 1 applic TP BID 7 Days #30 gm 10/18/18 Asthma: Yes CVA: No COPD: No DVT: No - Surgical History Abdominal Surgery: Yes Cholecystectomy: Yes - Immunization History Immunization Up to Date: Yes - Suicide/Smoking/Psychosocial Hx Smoking Status: Yes Smoking History: Current every day smoker Have you smoked in the past 12 months: No Number of Cigarettes Smoked Daily: 20 Information on smoking cessation initiated: No 'Breaking Loose' booklet given: 08/26/17 Hx Alcohol Use: No Drug/Substance Use Hx: No Substance Use Type: None *Physical Exam - Vital Signs Last Vital Signs Temp Pulse Resp BP Pulse Ox 98.0 F 91 H 18 136/90 99 12/05/18 13:58 12/05/18 13:58 12/05/18 13:58 12/05/18 13:58 12/05/18 13:58 - Physical Exam Comments: 12/05/18 14:49 Right ankle skin color and temperature are normal range of motion is full. There is no swelling. No tenderness about the knee proximal fibula or along its distal course. Medial and lateral malleolus base of the fifth metatarsal and navicular are nontender. Mild tenderness over the ATFL and Achilles. Negative Mckeon's test. Neurovascular intact. No instability. Medical Decision Making - Medical Decision Making 12/05/18 14:53 Right ankle sprain and Achilles strain follow-up with weight-bear as tolerated with Aircast and crutches *DC/Admit/Observation/Transfer Diagnosis at time of Disposition: Ankle pain, right, Right ankle strain, Right ankle sprain - Discharge Dispostion Disposition: HOME Condition at time of disposition: Stable Decision to Admit order: No - Referrals Referrals: Mark Dsouza MD [Primary Care Provider] - Chris Ernst DO [Staff Physician] - - Patient Instructions Printed Discharge Instructions: Ankle Sprain, DI for Ankle Sprain Additional Instructions: May weight-bear as tolerated with the crutches and Aircast return to the emergency room for worsening symptoms or follow-up with orthopedics in 1-2 days without fail for further evaluation and treatment options. - Post Discharge Activity
== END 2018-12-05 14:59 | disposition home or self-care (01) ==
LOC: JERFT 13:53
PROC: 2W3QX1Z Immobilization of Right Lower Leg using Splint (ICD-10-PCS; principal; 2018-12-05)
DX: S86.011A Strain of right Achilles tendon, initial encounter (principal); S93.491A Sprain of other ligament of right ankle, initial encounter; X50.1XXA Overexertion from prolonged static or awkward postures, initial encounter; Y93.01 Activity, walking, marching and hiking; Y92.89 Other specified places as the place of occurrence of the external cause; Y99.8 Other external cause status
CPT/HCPCS: 73610-TC-RT-FY; 73630-TC-RT-FY; 99282-25

== ENCOUNTER 2019-02-16 20:02 | Emergency (ER) | payer BC ==
[2019-02-16 20:08] VITALS: BP 147/86; PULSE 86; TEMP 97.8; BMI 19.1
--- NOTE | 2019-02-16 20:08 | PDOC ---
Rapid Medical Evaluation Time Seen by Provider: 02/16/19 20:04 Medical Evaluation: Allergies Allergy/AdvReac Type Severity Reaction Status Date / Time tinidazole [From Tindamax] Allergy Mild Hives Verified 12/05/18 13:58 chlorpheniramine maleate Allergy Verified 12/05/18 13:58 [From Advil Allergy Sinus] ciprofloxacin HCl Allergy Verified 12/05/18 13:58 [From Cipro] clarithromycin [From Biaxin] Allergy Verified 12/05/18 13:58 levofloxacin [From Levaquin] Allergy Verified 12/05/18 13:58 pseudoephedrine HCl Allergy Verified 12/05/18 13:58 [From Advil Allergy Sinus] sulfamethoxazole Allergy Verified 12/05/18 13:58 [From Bactrim] trimethoprim [From Bactrim] Allergy Verified 12/05/18 13:58 diphenhydramine HCl AdvReac Verified 12/05/18 13:58 [From Benadryl] 02/16/19 20:04 I have performed a brief in-person evaluation of this patient. The patient presents with a chief complaint of: sore throat, lightheaded, left ear pain and "my head is congested Pertinent physical exam findings: VSS. AF. OP with minimal erythema. I have ordered the following: nothing The patient will proceed to the ED for further evaluation. Discharge Disposition - Diagnosis Pharyngitis - Referrals - Patient Instructions - Post Discharge Activity
--- NOTE | 2019-02-16 20:39 | PDOC ---
History of Present Illness - General Chief Complaint: Sore Throat Stated Complaint: EARACHE/SORE THROAT Time Seen by Provider: 02/16/19 20:04 History Source: Patient - History of Present Illness Initial Comments: 02/16/19 20:44 Chief complaint: Sore throat and ear pain Patient 48-year-old female with a history of asthma who is complaining of 1 day of sore throat and left ear pain. Patient states that she took Motrin but is not helping. Patient denies any fever, asthma symptoms or shortness of breath. Patient has no difficulty speaking. GENERAL/CONSTITUTIONAL: No fever, weakness. dizziness HEAD, EYES, EARS, NOSE AND THROAT: No change in vision. + ear pain, no: discharge. +sore throat. CARDIOVASCULAR: No chest pain RESPIRATORY: No shortness of breath or cough GASTROINTESTINAL: No pain, nausea, vomiting, diarrhea or constipation GENITOURINARY: No dysuria MUSCULOSKELETAL: No neck or back pain SKIN: No rash NEUROLOGIC: No headache, vertigo, loss of consciousness, or loss of sensation. GENERAL: The patient is awake, alert, and fully oriented, in no acute distress. HEAD: Normal with no signs of trauma. EYES: Pupils equal, round and reactive to light, sclera anicteric, conjunctiva clear. ENT: Right ear clear, TM normal, left ear clear, TM mildly dusky,pharynx: mild erythema, no exudate, uvula midline NECK: supple CHEST: clear, nontender, rr ABD: soft, nontender BACK: no tenderness or signs of injury EXTREMITIES: Normal range of motion, no edema. NEUROLOGICAL: Normal speech, normal gait. SKIN: Warm, Dry Past History - Past Medical History Allergies/Adverse Reactions: Allergies Allergy/AdvReac Type Severity Reaction Status Date / Time tinidazole [From Tindamax] Allergy Mild Hives Verified 02/16/19 20:04 chlorpheniramine maleate Allergy Verified 02/16/19 20:04 [From Advil Allergy Sinus] ciprofloxacin HCl Allergy Verified 02/16/19 20:04 [From Cipro] clarithromycin [From Biaxin] Allergy Verified 02/16/19 20:04 levofloxacin [From Levaquin] Allergy Verified 02/16/19 20:04 pseudoephedrine HCl Allergy Verified 02/16/19 20:04 [From Advil Allergy Sinus] sulfamethoxazole Allergy Verified 02/16/19 20:04 [From Bactrim] trimethoprim [From Bactrim] Allergy Verified 02/16/19 20:04 diphenhydramine HCl AdvReac Verified 02/16/19 20:04 [From Benadryl] Home Medications: Ambulatory Orders Cetirizine HCl 10 mg PO DAILY 30 Days #30 tablet 10/18/18 Triamcinolone 0.025% Ointment [Aristocort 0.025% Ointment -] 1 applic TP BID 7 Days #30 gm 10/18/18 Amoxicillin - [Amoxicillin 500mg Capsule -] 500 mg PO TID #30 capsule 02/16/19 Ibuprofen [Motrin -] 600 mg PO QID #30 tablet 02/16/19 Asthma: Yes CVA: No COPD: No DVT: No - Surgical History Abdominal Surgery: Yes Cholecystectomy: Yes - Immunization History Immunization Up to Date: Yes - Suicide/Smoking/Psychosocial Hx Smoking Status: Yes Smoking History: Never smoked Have you smoked in the past 12 months: No Number of Cigarettes Smoked Daily: 20 'Breaking Loose' booklet given: 08/26/17 Hx Alcohol Use: No Drug/Substance Use Hx: No Substance Use Type: None *Physical Exam - Vital Signs Last Vital Signs Temp Pulse Resp BP Pulse Ox 97.8 F 86 18 147/86 100 02/16/19 20:05 02/16/19 20:05 02/16/19 20:05 02/16/19 20:05 02/16/19 20:05 Medical Decision Making - Medical Decision Making 02/16/19 20:46 Patient with 1 day of sore throat, left ear pain with mild erythema to the throat and darkened TM to the left ear. Patient requesting prescription for Motrin, and will give course of amoxicillin, patient is not ALLERGIC Discussed issues, findings, results, applicable medications and treatments and follow-up. All these were understood and all questions were answered *DC/Admit/Observation/Transfer Diagnosis at time of Disposition: Ear pain, left Pharyngitis Qualifiers: Pharyngitis/tonsillitis etiology: unspecified etiology Qualified Code(s): J02.9 - Acute pharyngitis, unspecified - Discharge Dispostion Disposition: HOME - Prescriptions Prescriptions: Amoxicillin - [Amoxicillin 500mg Capsule -] 500 mg PO TID #30 capsule Ibuprofen [Motrin -] 600 mg PO QID #30 tablet - Referrals Referrals: Mark Dsouza MD [Primary Care Provider] - - Patient Instructions Printed Discharge Instructions: DI for Pharyngitis/Tonsillopharyngitis -- Adult Additional Instructions: Drink 2-3 L of water daily take amoxicillin as directed until finished Take Tylenol 650 mg every 4 hours or Motrin 600 mg every 6 hours for fever and pain Return to the nearest ER if short of breath, unable to swallow or feeling sicker Followup with your doctor in one to 2 days - Post Discharge Activity
== END 2019-02-16 20:53 | disposition home or self-care (01) ==
LOC: JERFT 20:02
DX: H92.02 Otalgia, left ear (principal); J02.9 Acute pharyngitis, unspecified; J45.909 Unspecified asthma, uncomplicated
CPT/HCPCS: 99281-25

== ENCOUNTER 2019-05-08 23:49 | Emergency (ER) | payer BC, OTHER ==
[2019-05-09 00:15] VITALS: BP 143/90; PULSE 92; TEMP 97.7; BMI 19.3
--- NOTE | 2019-05-09 02:42 | PDOC ---
History of Present Illness - General Chief Complaint: Injury Stated Complaint: FALL Time Seen by Provider: 05/09/19 02:41 - History of Present Illness Initial Comments: Patient not in vertical area 05/09/19 02:46 Not in vertical area. Not seen by Nurse Nicky. [facility] 05/09/19 03:36 Past History - Past Medical History Allergies/Adverse Reactions: Allergies Allergy/AdvReac Type Severity Reaction Status Date / Time tinidazole [From Tindamax] Allergy Mild Hives Verified 05/09/19 00:13 chlorpheniramine maleate Allergy Verified 05/09/19 00:13 [From Advil Allergy Sinus] ciprofloxacin HCl Allergy Verified 05/09/19 00:13 [From Cipro] clarithromycin [From Biaxin] Allergy Verified 05/09/19 00:13 levofloxacin [From Levaquin] Allergy Verified 05/09/19 00:13 pseudoephedrine HCl Allergy Verified 05/09/19 00:13 [From Advil Allergy Sinus] sulfamethoxazole Allergy Verified 05/09/19 00:13 [From Bactrim] trimethoprim [From Bactrim] Allergy Verified 05/09/19 00:13 diphenhydramine HCl AdvReac Verified 05/09/19 00:13 [From Benadryl] Home Medications: Ambulatory Orders Cetirizine HCl 10 mg PO DAILY 30 Days #30 tablet 10/18/18 Triamcinolone 0.025% Ointment [Aristocort 0.025% Ointment -] 1 applic TP BID 7 Days #30 gm 10/18/18 Amoxicillin - [Amoxicillin 500mg Capsule -] 500 mg PO TID #30 capsule 02/16/19 Ibuprofen [Motrin -] 600 mg PO QID #30 tablet 02/16/19 Asthma: Yes CVA: No COPD: No DVT: No - Surgical History Abdominal Surgery: Yes Cholecystectomy: Yes - Immunization History Immunization Up to Date: Yes - Psycho Social/Smoking Cessation Hx Smoking Status: Yes Smoking History: Never smoked Have you smoked in the past 12 months: No Number of Cigarettes Smoked Daily: 20 Information on smoking cessation initiated: No 'Breaking Loose' booklet given: 08/26/17 Hx Alcohol Use: No Drug/Substance Use Hx: No Substance Use Type: None *Physical Exam - Vital Signs Last Vital Signs Temp Pulse Resp BP Pulse Ox 97.7 F 92 H 18 143/90 98 05/08/19 23:50 05/08/19 23:50 05/08/19 23:50 05/08/19 23:50 05/08/19 23:50 Discharge - Discharge Information Problems reviewed: Yes Clinical Impression/Diagnosis: Patient left before evaluation by physician Condition: Fair Disposition: LEFT BEFORE MED ANGELITO ALVAREZ - Follow up/Referral Referrals: Mark Dsouza MD [Primary Care Provider] - - Patient Discharge Instructions - Post Discharge Activity
--- NOTE | 2019-05-09 03:14 | PDOC ---
Attending Attestation - Resident Resident Name: Ivory Morrow - ED Attending Attestation I have performed the following: I have examined & evaluated the patient, The case was reviewed & discussed with the resident, I agree w/resident's findings & plan
== END 2019-05-09 04:00 | disposition left against medical advice (07) ==
LOC: JER 23:49
DX: Z53.21 Procedure and treatment not carried out due to patient leaving prior to being seen by health care provider (principal)
CPT/HCPCS: 99281-25

== ENCOUNTER 2019-05-09 20:29 | Emergency (ER) | payer BC ==
--- NOTE | 2019-05-09 20:41 | PDOC ---
Rapid Medical Evaluation Chief Complaint: Head/Neck problem Time Seen by Provider: 05/09/19 20:36 Medical Evaluation: Allergies Allergy/AdvReac Type Severity Reaction Status Date / Time tinidazole [From Tindamax] Allergy Mild Hives Verified 05/09/19 00:13 chlorpheniramine maleate Allergy Verified 05/09/19 00:13 [From Advil Allergy Sinus] ciprofloxacin HCl Allergy Verified 05/09/19 00:13 [From Cipro] clarithromycin [From Biaxin] Allergy Verified 05/09/19 00:13 levofloxacin [From Levaquin] Allergy Verified 05/09/19 00:13 pseudoephedrine HCl Allergy Verified 05/09/19 00:13 [From Advil Allergy Sinus] sulfamethoxazole Allergy Verified 05/09/19 00:13 [From Bactrim] trimethoprim [From Bactrim] Allergy Verified 05/09/19 00:13 diphenhydramine HCl AdvReac Verified 05/09/19 00:13 [From Benadryl] 05/09/19 20:38 I have performed a brief in-person evaluation of this patient. The patient presents with a chief complaint of:tripped and struck face on edge of stair. Pertinent physical exam findings:swelling and bruising to left cheek. no crepitus or stepoff. No LOC, didnt wait last night for eval after 3 hours in waiting area. I have ordered the following: CT facial bones The patient will proceed to the ED for further evaluation. 05/09/19 20:44 Discharge Disposition - Diagnosis Facial trauma - Referrals - Patient Instructions - Post Discharge Activity
[2019-05-09 20:45] VITALS: BP 144/82; PULSE 86; TEMP 97.8; BMI 19.3
--- NOTE | 2019-05-09 22:20 | PDOC ---
History of Present Illness - General Chief Complaint: Head/Neck problem Stated Complaint: FALL Time Seen by Provider: 05/09/19 20:36 - History of Present Illness Initial Comments: 05/09/19 22:18 48-year-old female with a past medical history of asthma presents for left cheek pain after fall last night. No post injury nausea vomiting visual changes or headaches. She has left cheek pain Past History - Past Medical History Allergies/Adverse Reactions: Allergies Allergy/AdvReac Type Severity Reaction Status Date / Time tinidazole [From Tindamax] Allergy Mild Hives Verified 05/09/19 00:13 chlorpheniramine maleate Allergy Verified 05/09/19 00:13 [From Advil Allergy Sinus] ciprofloxacin HCl Allergy Verified 05/09/19 00:13 [From Cipro] clarithromycin [From Biaxin] Allergy Verified 05/09/19 00:13 levofloxacin [From Levaquin] Allergy Verified 05/09/19 00:13 pseudoephedrine HCl Allergy Verified 05/09/19 00:13 [From Advil Allergy Sinus] shrimp Allergy Verified 05/09/19 20:39 sulfamethoxazole Allergy Verified 05/09/19 00:13 [From Bactrim] trimethoprim [From Bactrim] Allergy Verified 05/09/19 00:13 diphenhydramine HCl AdvReac Verified 05/09/19 00:13 [From Benadryl] Home Medications: Ambulatory Orders Cetirizine HCl 10 mg PO DAILY 30 Days #30 tablet 10/18/18 Triamcinolone 0.025% Ointment [Aristocort 0.025% Ointment -] 1 applic TP BID 7 Days #30 gm 10/18/18 Amoxicillin - [Amoxicillin 500mg Capsule -] 500 mg PO TID #30 capsule 02/16/19 Ibuprofen [Motrin -] 600 mg PO QID #30 tablet 02/16/19 Asthma: Yes CVA: No COPD: No DVT: No - Surgical History Abdominal Surgery: Yes Cholecystectomy: Yes - Immunization History Immunization Up to Date: Yes - Psycho Social/Smoking Cessation Hx Smoking Status: Yes Smoking History: Current every day smoker Have you smoked in the past 12 months: No Number of Cigarettes Smoked Daily: 5 Information on smoking cessation initiated: Yes 'Breaking Loose' booklet given: 08/26/17 Hx Alcohol Use: No Drug/Substance Use Hx: No Substance Use Type: None Review of Systems - Review of Systems Musculoskeletal: Yes: See HPI *Physical Exam - Vital Signs Last Vital Signs Temp Pulse Resp BP Pulse Ox 97.8 F 86 20 144/82 97 05/09/19 20:41 05/09/19 20:41 05/09/19 20:41 05/09/19 20:41 05/09/19 20:41 - Physical Exam Comments: 05/09/19 22:18 GENERAL: The patient is awake, alert, and fully oriented, in no acute distress. HEAD: Normal left periorbital ecchymosis EYES: sclera anicteric, conjunctiva clear. ENT: Ears normal NECK: Normal range of motion LUNGS: Breath sounds equal, clear to auscultation bilaterally. No wheezes, and no crackles. HEART: S1 and S2 without murmur, rub or gallop. ABDOMEN: Soft, nontender, normoactive bowel sounds. No guarding, no rebound. No masses. EXTREMITIES: Normal range of motion, no edema. No clubbing or cyanosis. No cords, erythema, or tenderness. NEUROLOGICAL: Cranial nerves II through XII grossly intact. Normal speech, normal gait. PSYCH: Normal mood, normal affect. SKIN: Warm, Dry, normal turgor, no rashes or lesions noted. Medical Decision Making - Medical Decision Making 05/09/19 22:19 No fracture on CAT scan, this is a facial contusion Tylenol for pain follow-up with primary care physician nothing to do emergently Discharge - Discharge Information Problems reviewed: Yes Clinical Impression/Diagnosis: Facial trauma Condition: Stable Disposition: HOME - Admission No - Follow up/Referral Referrals: Mark Dsouza MD [Primary Care Provider] - - Patient Discharge Instructions Additional Instructions: This is a facial contusion, you may apply ice and take Tylenol as directed for pain. Return to the emergency room for worsening symptoms and without fail please follow-up with your primary care physician in 1 to 2 days for further evaluation and treatment options. - Post Discharge Activity
== END 2019-05-09 22:37 | disposition home or self-care (01) ==
LOC: JERFT 20:29
DX: S00.83XA Contusion of other part of head, initial encounter (principal); W01.198A Fall on same level from slipping, tripping and stumbling with subsequent striking against other object, initial encounter; Y93.89 Activity, other specified; Y92.89 Other specified places as the place of occurrence of the external cause; Y99.8 Other external cause status; F17.210 Nicotine dependence, cigarettes, uncomplicated; Z87.09 Personal history of other diseases of the respiratory system; Z88.8 Allergy status to other drugs, medicaments and biological substances; Z88.2 Allergy status to sulfonamides
CPT/HCPCS: 70486-TC; 99281-25

== ENCOUNTER 2021-09-03 17:05 | Emergency (ER) | payer BC ==
[2021-09-03 17:42] VITALS: BP 116/83; PULSE 90; TEMP 98; BMI 18.8
== END 2021-09-03 20:06 | disposition home or self-care (01) ==
LOC: JERFT 17:05 → JER 17:05 → JERFT 20:06
DX: R21 Rash and other nonspecific skin eruption (principal)
CPT/HCPCS: 99283-25

== ENCOUNTER 2021-12-05 09:45 | Emergency (ER) | payer BC ==
[2021-12-05 09:52] VITALS: BP 150/96; PULSE 90; TEMP 97.5; BMI 23.4
[2021-12-05] MEDS ORDERED: predniSONE 20 MG TABLET (UD) PO ONE (11:34)
[2021-12-05] MEDS ORDERED: predniSONE 10 MG TABLET (UD) ONE (11:38)
[2021-12-05] MEDS ORDERED: predniSONE 20 MG TABLET (UD) ONE (11:38)
== END 2021-12-05 11:51 | disposition home or self-care (01) ==
LOC: JER 09:45
DX: T78.40XA Allergy, unspecified, initial encounter (principal)
CPT/HCPCS: 99283-25

== ENCOUNTER 2022-01-05 16:36 | Emergency (ER) | payer OTHER, BC ==
[2022-01-05 17:01] VITALS: BP 105/80; PULSE 118; RESP 18; TEMP 97.7; BMI 18.4
[2022-01-05] MEDS ORDERED: FAMOTIDINE 20 MG TABLET PO ONE (19:19)
[2022-01-05] MEDS ORDERED: FAMOTIDINE 20 MG TABLET ONE (19:28)
== END 2022-01-05 20:11 | disposition home or self-care (01) ==
LOC: JERFT 16:36
DX: L23.9 Allergic contact dermatitis, unspecified cause (principal)
CPT/HCPCS: 99283-25

== ENCOUNTER 2022-02-06 11:21 | Emergency (ER) | payer OTHER, BC ==
[2022-02-06 11:43] VITALS: BP 123/72; PULSE 88; RESP 17; TEMP 97.9; BMI 18.8
[2022-02-06] MEDS ORDERED: predniSONE 20 MG TABLET (UD) PO ONE (12:56)
[2022-02-06] MEDS ORDERED: predniSONE 20 MG TABLET (UD) ONE (13:12)
== END 2022-02-06 13:53 | disposition home or self-care (01) ==
LOC: JERFT 11:21
DX: L23.89 Allergic contact dermatitis due to other agents (principal)
CPT/HCPCS: 99283-25

== ENCOUNTER 2022-03-06 09:54 | Emergency (ER) | payer OTHER ==
[2022-03-06 10:17] VITALS: BP 127/91; PULSE 100; RESP 17; TEMP 98; BMI 18.0
[2022-03-06] MEDS ORDERED: FAMOTIDINE 20 MG TABLET PO ONE (10:41)
[2022-03-06] MEDS ORDERED: DEXAMETHASONE LIQUID 0.5 MG/5 ML PO ONE (10:41)
[2022-03-06] MEDS ORDERED: FAMOTIDINE 20 MG TABLET ONE (10:45)
[2022-03-06] MEDS ORDERED: DEXAMETHASONE SOD PHOSPHATE 10 MG/1 ML VIAL ONE (10:45)
== END 2022-03-06 10:56 | disposition home or self-care (01) ==
LOC: JER 09:54 → JERFT 09:54
DX: L23.9 Allergic contact dermatitis, unspecified cause (principal)
CPT/HCPCS: 99283-25

== ENCOUNTER 2022-05-13 21:02 | Emergency (ER) | payer BC, OTHER ==
[2022-05-13 22:12] VITALS: BP 115/73; PULSE 90; RESP 18; TEMP 98; BMI 18.8
[2022-05-13] MEDS ORDERED: ACETAMINOPHEN 325 MG TABLET (FP) PO ONE (23:19)
[2022-05-13] MEDS ORDERED: ACETAMINOPHEN 325 MG TABLET (FP) ONE (23:41)
== END 2022-05-14 00:30 | disposition home or self-care (01) ==
LOC: JER 21:02
DX: S63.91XA Sprain of unspecified part of right wrist and hand, initial encounter (principal); W01.0XXA Fall on same level from slipping, tripping and stumbling without subsequent striking against object, initial encounter
CPT/HCPCS: 73110-TC-RT-FY; 73130-TC-RT-FY; 99284-25

== ENCOUNTER 2022-12-13 09:04 | Emergency (ER) | payer BC ==
[2022-12-13 09:12] VITALS: BP 141/74; PULSE 81; RESP 18; TEMP 97.6; BMI 18.8
[2022-12-13] MEDS ORDERED: KETOROLAC TROMETHAMINE 30 MG/1 ML VIAL IM ONE (09:55)
[2022-12-13] MEDS ORDERED: LIDOCAINE 5% TOPICAL PATCH TP ONE (09:55)
[2022-12-13] MEDS ORDERED: CYCLOBENZAPRINE HCL 10 MG TABLET (FP) PO ONE (09:55)
[2022-12-13] MEDS ORDERED: CYCLOBENZAPRINE HCL 10 MG TABLET (FP) ONE (10:02)
[2022-12-13] MEDS ORDERED: LIDOCAINE 5% TOPICAL PATCH ONE (10:02)
[2022-12-13] MEDS ORDERED: KETOROLAC TROMETHAMINE 30 MG/1 ML VIAL ONE (10:03)
[2022-12-13] MEDS ORDERED: IBUPROFEN 600 MG TABLET (FP) PO ONE ×2 (10:09→10:16)
[2022-12-13] MEDS ORDERED: LIDOCAINE PATCH REMOVAL MC ONE (22:00)
== END 2022-12-13 10:26 | disposition home or self-care (01) ==
LOC: JERFT 09:04 → JER 09:04 → JERFT 10:26
DX: S93.401A Sprain of unspecified ligament of right ankle, initial encounter (principal); W01.0XXA Fall on same level from slipping, tripping and stumbling without subsequent striking against object, initial encounter
CPT/HCPCS: 73610-TC-RT-FY; 73630-TC-RT-FY; 99283-25

== ENCOUNTER 2023-02-18 18:20 | Emergency (ER) | payer BC ==
[2023-02-18 18:37] VITALS: BP 131/82; PULSE 86; RESP 18; TEMP 98.4; BMI 18.6
[2023-02-18] MEDS ORDERED: DIPHTH,PERTUSS(ACELL),TET 0.5 ML DISP.SYRIN IM ONE ×2 (19:08→19:24)
[2023-02-18] MEDS ORDERED: BACITRACIN ZINC 15 GM TUBE TOPICAL OINTMENT ONE (19:14)
== END 2023-02-18 19:45 | disposition home or self-care (01) ==
LOC: JERFT 18:20
PROC: 3E0234Z Introduction of Serum, Toxoid and Vaccine into Muscle, Percutaneous Approach (ICD-10-PCS; principal; 2023-02-18)
DX: S61.451A Open bite of right hand, initial encounter (principal); T22.012A Burn of unspecified degree of left forearm, initial encounter; Y04.1XXA Assault by human bite, initial encounter; X15.0XXA Contact with hot stove (kitchen), initial encounter
CPT/HCPCS: 90715; 99283-25

== ENCOUNTER 2023-02-21 13:03 | Emergency (ER) | payer BC ==
[2023-02-21 13:08] VITALS: BP 134/86; PULSE 83; RESP 18; TEMP 97.9; BMI 18.6
== END 2023-02-21 19:20 | disposition home or self-care (01) ==
LOC: JERFT 13:03
DX: M54.2 Cervicalgia (principal)
CPT/HCPCS: 70490-TC; 99284-25

== ENCOUNTER 2023-03-30 08:16 | Emergency (ER) | payer BC ==
[2023-03-30 10:21] VITALS: BP 114/84; PULSE 95; RESP 18; TEMP 97.4; BMI 18.8
== END 2023-03-30 09:58 | disposition home or self-care (01) ==
LOC: JER 08:16
DX: R05.9 Cough, unspecified (principal); R07.89 Other chest pain; R68.83 Chills (without fever); H92.01 Otalgia, right ear; J02.9 Acute pharyngitis, unspecified; Z20.822 Contact with and (suspected) exposure to COVID-19
CPT/HCPCS: 0241U-QW; 93005; 93010; 99284-25

== ENCOUNTER 2023-04-05 08:20 | Emergency (ER) | payer BC ==
[2023-04-05 08:52] VITALS: BP 135/96; PULSE 94; RESP 17; TEMP 97.9; BMI 18.8
[2023-04-05] MEDS ORDERED: ACETAMINOPHEN 325 MG TABLET (FP) PO ONE (09:47)
[2023-04-05] MEDS ORDERED: LORATADINE 10 MG TABLET PO ONE (09:47)
[2023-04-05] MEDS ORDERED: LORATADINE 10 MG TABLET ONE (09:54)
[2023-04-05] MEDS ORDERED: ACETAMINOPHEN 325 MG TABLET (FP) ONE (09:54)
== END 2023-04-05 10:24 | disposition home or self-care (01) ==
LOC: JER 08:20 → JERFT 08:20
DX: R05.9 Cough, unspecified (principal); R09.81 Nasal congestion; R50.9 Fever, unspecified; J06.9 Acute upper respiratory infection, unspecified; Z20.822 Contact with and (suspected) exposure to COVID-19
CPT/HCPCS: 0241U-QW; 99283-25

== ENCOUNTER 2023-04-09 04:53 | Day surgery (SDC) | payer BC ==
[2023-04-07 15:12] VITALS: BMI 17.6
[2023-04-09] MEDS ORDERED: BUPIVACAINE HCL/PF 0.5% (5MG/ML) 10 ML VIAL ONE (07:23)
[2023-04-09] MEDS ORDERED: LIDOCAINE HCL/PF 1% SDV 5ML VIAL ONE (07:23)
[2023-04-09 11:12] VITALS: RESP 18
[2023-04-09] MEDS ORDERED: BUPIVACAINE HCL/PF 0.75% 10 ML VIAL ONE (12:07)
[2023-04-09] MEDS ORDERED: DEXAMETHASONE SOD PHOSPHATE 10 MG/1 ML VIAL ONE (12:07)
[2023-04-09] MEDS ORDERED: BUPIVACAINE HCL/PF 0.75% 10 ML VIAL NR ONE (12:25)
[2023-04-09] MEDS ORDERED: LIDOCAINE 1% P/F 10 MG/ML VIAL INF ONE (12:25)
[2023-04-09 13:49] VITALS: BP 128/82; PULSE 80; TEMP 98
[2023-04-09] MEDS ORDERED: ACETAMINOPHEN 500 MG TABLET (FP) PO PRN (14:42)
== END 2023-04-09 12:55 | disposition home or self-care (01) ==
LOC: JASU-SURG 04:53
PROVIDERS: ATTEND Pain Medicine Pain Medicine
PROC: 3E0T3BZ Introduction of Anesthetic Agent into Peripheral Nerves and Plexi, Percutaneous Approach (ICD-10-PCS; principal; 2023-04-09 12:45)
DX: M47.816 Spondylosis without myelopathy or radiculopathy, lumbar region (principal)
CPT/HCPCS: J1100

== ENCOUNTER 2023-04-18 01:57 | Emergency (ER) | payer BC ==
[2023-04-18 01:05] VITALS: BP 132/83; PULSE 88; RESP 18; TEMP 97.3; BMI 18.8
[2023-04-18 02:31] LABS: EPI CELLS 28 /uL (0-25.1); HYALINE CASTS 1 /uL (0-3.1); PH,URINE 5.5 (5.0-8.0); URINE APPEARANCE CLEAR; URINE BACTERIA 34 /uL (0-1359); URINE BILIRUBIN NEGATIVE (NEGATIVE); URINE COLOR YELLOW; URINE GLUCOSE (UA) NEGATIVE (NEGATIVE); URINE KETONE TRACE (NEGATIVE); URINE LEUK ESTERASE 2+ (NEGATIVE); URINE NITRITE NEGATIVE (NEGATIVE); URINE PROTEIN NEGATIVE (NEGATIVE); URINE RBC 11 /uL (0-23.9); URINE WBC 133 /uL (0-25.8)
== END 2023-04-18 03:32 | disposition home or self-care (01) ==
LOC: JER 01:57
DX: N76.0 Acute vaginitis (principal); N39.0 Urinary tract infection, site not specified
CPT/HCPCS: 81003; 87086; 99283-25

== ENCOUNTER 2023-04-18 18:17 | Emergency (ER) | payer BC ==
[2023-04-18 18:24] VITALS: BP 127/83; PULSE 89; RESP 18; TEMP 97.7; BMI 18.8
[2023-04-18] MEDS ORDERED: ACETAMINOPHEN 500 MG TABLET (FP) PO ONE (19:08)
[2023-04-18] MEDS ORDERED: ACETAMINOPHEN 500 MG TABLET (FP) ONE (19:10)
== END 2023-04-18 20:20 | disposition home or self-care (01) ==
LOC: JER 18:17
DX: S93.401A Sprain of unspecified ligament of right ankle, initial encounter (principal); M79.671 Pain in right foot; W01.0XXA Fall on same level from slipping, tripping and stumbling without subsequent striking against object, initial encounter; Y92.009 Unspecified place in unspecified non-institutional (private) residence as the place of occurrence of the external cause
CPT/HCPCS: 73610-TC-RT-FY; 73630-TC-RT-FY; 99283-25

== ENCOUNTER 2023-05-10 08:44 | Emergency (ER) | payer BC ==
[2023-05-10 08:50] VITALS: BP 124/75; PULSE 84; RESP 18; TEMP 98; BMI 18.8
[2023-05-10] MEDS ORDERED: BACITRACIN ZINC 15 GM TUBE TOPICAL OINTMENT ONE (09:31)
== END 2023-05-10 09:45 | disposition home or self-care (01) ==
LOC: JER 08:44
DX: T23.011A Burn of unspecified degree of right thumb (nail), initial encounter (principal); X15.0XXA Contact with hot stove (kitchen), initial encounter
CPT/HCPCS: 99282-25

== ENCOUNTER 2023-05-25 17:32 | Emergency (ER) | payer OTHER, BC ==
[2023-05-25 17:42] VITALS: BP 136/84; PULSE 83; RESP 17; TEMP 97.8; BMI 17.2
== END 2023-05-25 19:34 | disposition home or self-care (01) ==
LOC: JERFT 17:32 → JER 17:32 → JERFT 19:34
DX: M54.2 Cervicalgia (principal); M62.838 Other muscle spasm; V49.40XA Driver injured in collision with unspecified motor vehicles in traffic accident, initial encounter; Y92.410 Unspecified street and highway as the place of occurrence of the external cause
CPT/HCPCS: 72050-TC-FY; 72070-TC-FY; 99283-25